=== PATIENT | male | born 2000 | race Caucasian/White ===

== ENCOUNTER → 2020-12-09 15:43 | Outpatient (CLI) | payer OTHER, SELFPAY ==
--- NOTE | 2021-01-07 07:37 | P.HOLT.S_ITS ---
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 Date Patient Seen: 12/09/20 Requesting provider: Arturo Tsai Indication: Palpitations Duration of monitoring (days): 14 Diary information: There were 11 patient triggered events and 6 patient diary entries Patient triggered events were associated with (within 45 seconds) sinus rhythm and SVT Patient diary events were associated with (within 45 seconds) sinus rhythm and SVT Data: Minimum heart rate identified was 43 beats per minute at 08:59 on 12/19/2020 Maximum sinus heart rate was 150 beats per minute at 11:43 on 12/13/2020 Maximum overall heart rate was 200 beats per minute at 11:32 on 12/14/2020 during a 9 minutes 28 sec run of SVT Less than 1% of identified beats rather ventricular supraventricular ectopic in origin There were 12 runs of SVT the fastest lasting 9 minutes and 28 seconds as above at 200 beats per minute, the fastest run was also the longest. Delta waves appear to be present as well which is consistent with possible Evsyx-Rbhbmlbix-Qdtir Impression: 14 day teletypesetter monitor showing runs of SVT lasting almost 10 minutes and possibility of WPW also being present Clinical correlation suggested
== END ==
PROVIDERS: Family Provider Pediatrics; PCP Internal Medicine; Referring Provider Family Medicine; Visit Provider Family Medicine
DX: R00.2 Palpitations (principal)
CPT/HCPCS: 93246; 93248

== ENCOUNTER → 2025-10-02 18:42 | Outpatient (CLI) | payer OTHER, SELFPAY ==
--- NOTE | 2025-10-02 18:45 | DI.RAD.S_ITS ---
PROCEDURE: XR CHEST 2V INDICATIONS: Cough TECHNIQUE: 2 views of the chest were acquired. COMPARISON: None. FINDINGS: Surgical changes and devices: None. Lungs and pleura: Bronchial wall thickening is noted. Nodular right upper lobe ground-glass opacities are present. No effusions or pneumothorax. Mediastinum: Mediastinal contours are normal. Heart size is normal. Bones and chest wall: No suspicious bony abnormalities. Soft tissues appear unremarkable. IMPRESSION: Right upper lobe consolidation. Recommend follow-up radiographs to document resolution of findings. Dictated by: Nicole Deng M.D. on 10/02/2025 at 19:11 Approved by: Nicole Deng M.D. on 10/02/2025 at 19:12
== END ==
LOC: RAD 18:44
PROVIDERS: Family Provider Pediatrics; PCP Internal Medicine; Referring Provider Nurse Practitioner Family; Visit Provider Nurse Practitioner Family
DX: R05.9 Cough, unspecified (principal)
CPT/HCPCS: 71046